=== PATIENT | male | born 1965 | race Caucasian/White ===

== ENCOUNTER 2020-03-24 11:03 | Inpatient (IN) | payer MEDICAID ==
[~2020-03-24] VITALS: Ht 170.2 cm; Wt 95.3 kg
[2020-03-24] MEDS ORDERED: ALBUTEROL 6.7GM HFA INHALER ORI ONE (11:30)
[2020-03-24] MEDS ORDERED: DEXAMETHASONE 2MG TABLET PO ONE (11:30)
[2020-03-24 11:59] LABS: BASOPHILS % 0.5 % (0.0-2.0); HEMOGLOBIN. 15.3 g/dL (14.0-18.0); LYMPHOCYTES % 23.5 % (20.0-50.0); MEAN CORPUSCULAR HEMOGLOBIN 29.5 pg (28.0-32.0); MEAN CORPUSCULAR VOLUME 86.8 fL (80.0-94.0); MEAN PLATELET VOLUME 8.4 fl (7.4-10.4); MONOCYTES % 7.8 % (2.0-8.0); NEUTROPHILS % 66.2 % (40.0-76.0); PLATELET 273 x1000/uL (130-400); RED BLOOD CELL COUNT 5.18 mill/uL (4.7-6.1); RED CELL DISTRIBUTION WIDTH 12.7 % (11.6-14.6)
[2020-03-24 12:03] LABS: CHLORIDE 98 mEq/L (98-107)
[2020-03-24] MEDS ORDERED: POTASSIUM CHLORIDE 20MEQ TABLET SR PO ONE (12:15)
[2020-03-24] MEDS ORDERED: MAGNESIUM 1 G PREMIX 100 ML IV ONE (12:15)
[2020-03-24] MEDS ORDERED: KCL 20MEQ/100ML PREMIX 100 ML IV ONE (12:15)
[2020-03-25 06:30] VITALS: BP 121/77
[2020-03-25] MEDS ORDERED: MAGNESIUM/ALUMINUM HYDROXIDE/SIMETHICONE 30ML UDC PO PRN (07:45)
[2020-03-25] MEDS ORDERED: ONDANSETRON HCL 4MG/2ML INJ IV PRN (07:45)
[2020-03-25] MEDS ORDERED: ACETAMINOPHEN 325MG TABLET PO PRN (07:45)
[2020-03-25] MEDS ORDERED: DEXTROSE 50% WATER 50ML SYRINGE IV PRN ×4 (07:45)
[2020-03-25] MEDS ORDERED: CLONIDINE 0.1MG TABLET PO PRN (07:45)
[2020-03-25] MEDS: BLOOD SUGAR DIAGNOSTIC STRIP TEST SCH ×4 (08:00→21:00)
[2020-03-25] MEDS ORDERED: INSULIN LISPRO 100 UNITS/ML SUBCUT SCH (08:10)
[2020-03-25] MEDS ORDERED: DEXAMETHASONE 4MG TABLET PO SCH (09:00)
[2020-03-25] MEDS ORDERED: ALBUTEROL 6.7GM HFA INHALER ORI PRN (09:00)
[2020-03-25] MEDS: PANTOPRAZOLE SODIUM 40 MG/VIAL IV SCH (09:36)
[2020-03-25] MEDS: AZITHROMYCIN 500 MG TABLET PO SCH (09:37)
[2020-03-25] MEDS: INSULIN LISPRO 100 UNITS/ML SUBCUT SCH ×4 (09:38→23:04)
[2020-03-25 09:49] LABS: HEMOGLOBIN 14.2 g/dL (14.0-18.0)
[2020-03-25 09:50] LABS: MEAN CORPUSCULAR VOLUME 87.7 fL (80.0-94.0); PLATELET 315 x1000/uL (130-400); RED CELL DISTRIBUTION WIDTH 12.8 % (11.6-14.6)
[2020-03-25 09:55] LABS: CHLORIDE 100 mEq/L (98-107)
[2020-03-25] MEDS: CEFTRIAXONE 1,000 MG in DEXTROSE 5% WATER 50 ML IV SCH (12:29)
[2020-03-25] MEDS: ENOXAPARIN 30MG/0.3ML SYR SUBCUT SCH ×2 (12:30→23:08)
[2020-03-25] MEDS ORDERED: BLOOD SUGAR DIAGNOSTIC STRIP TEST SCH (12:40)
[2020-03-25] MEDS ORDERED: METF-414 PO (13:57)
[2020-03-25] MEDS ORDERED: HYDR25TA PO (13:58)
[2020-03-25] MEDS ORDERED: LISI-604 PO (13:58)
[2020-03-25 14:24] VITALS: BP 158/80
[2020-03-25 16:00] VITALS: BP 112/68
[2020-03-25] MEDS: DEXAMETHASONE 6MG TABLET PO SCH (17:31)
[2020-03-25 20:00] VITALS: BP 111/76
[2020-03-25] MEDS ORDERED: INSULIN GLARGINE UD 100 UNITS/ML SYR SUBCUT SCH (22:00)
[2020-03-26] VITALS: BP 109/74
[2020-03-26 04:00] VITALS: BP 101/68
[2020-03-26] MEDS: BLOOD SUGAR DIAGNOSTIC STRIP TEST SCH ×3 (06:45→18:10)
[2020-03-26] MEDS: INSULIN LISPRO 100 UNITS/ML SUBCUT SCH ×3 (06:50→18:10)
[2020-03-26 08:00] VITALS: BP 118/81
[2020-03-26] MEDS ORDERED: LISINOPRIL 20MG TABLET PO SCH (09:00)
[2020-03-26] MEDS ORDERED: HYDROCHLOROTHIAZIDE 25MG TABLET PO SCH (09:00)
[2020-03-26 09:16] LABS: BASOPHILS % 0.3 % (0.0-2.0); HEMATOCRIT. 47.2 % (42.0-52.0); LYMPHOCYTES % 15.9 % (20.0-50.0); MEAN CORPUSCULAR HEMOGLOBIN 29.9 pg (28.0-32.0); MEAN CORPUSCULAR VOLUME 88.5 fL (80.0-94.0); MEAN PLATELET VOLUME 8.6 fl (7.4-10.4); MONOCYTES % 4.1 % (2.0-8.0); NEUTROPHILS % 79.7 % (40.0-76.0); PLATELET 369 x1000/uL (130-400); RED BLOOD CELL COUNT 5.34 mill/uL (4.7-6.1); RED CELL DISTRIBUTION WIDTH 13.1 % (11.6-14.6)
[2020-03-26] MEDS: AZITHROMYCIN 500 MG TABLET PO SCH (09:31)
[2020-03-26] MEDS: DEXAMETHASONE 6MG TABLET PO SCH (09:31)
[2020-03-26] MEDS: ENOXAPARIN 30MG/0.3ML SYR SUBCUT SCH (09:32)
[2020-03-26] MEDS: PANTOPRAZOLE SODIUM 40 MG/VIAL IV SCH (09:32)
[2020-03-26] MEDS: CEFTRIAXONE 1,000 MG in DEXTROSE 5% WATER 50 ML IV SCH (09:32)
[2020-03-26 09:34] LABS: CHLORIDE 104 mEq/L (98-107)
[2020-03-26 09:44] LABS: PHOSPHORUS 3.6 mg/dL (2.5-4.9)
[2020-03-26 13:52] LABS: BG CARBOXYHEMOGLOBIN 0.3 % (0.5-1.5); BG FRACTION INSPIRED OXYGEN 36; BG HCO3 ACT 22.5 mmol/L (22.0-26.0); BG METHEMOGLOBIN 0.1 % (0.0-1.5); BG OXYHEMOGLOBIN 95.6 % (94.0-97.0); BG PCO2 34.3 mmHg (35.0-45.0); BG PH 7.435 (7.350-7.450); BG PO2 81.2 mmHg (75.0-100.0); BG SAMPLE SITE RIGHT BRACHIAL; BG TOTAL HEMOGLOBIN 14.8 g/dL (12.0-18.0); BG VENT MODE NASAL CANNULA
[2020-03-26 14:00] VITALS: BP 111/74
[2020-03-26] MEDS ORDERED: INSULIN GLARGINE UD 100 UNITS/ML SYR SUBCUT SCH (15:30)
[2020-03-26] MEDS ORDERED: INSU100I28 SQ (17:16)
[2020-03-26] MEDS ORDERED: INSULIN LISPRO 100 UNITS/ML SUBCUT NR (17:16)
[2020-03-27] MEDS ORDERED: FAMOTIDINE 20MG/2ML VIAL IV SCH (09:00)
== END 2020-03-26 18:57 | disposition home or self-care (01) | DRG 137 ==
LOC: ER 11:21 → MICUSO 14:46 → 7WST 03-25 03:54
PROVIDERS: ADMIT Internal Medicine; ATTEND Internal Medicine
DX: U07.1 COVID-19 (principal); J96.01 Acute respiratory failure with hypoxia; I10 Essential (primary) hypertension; E87.6 Hypokalemia; R74.01 Elevation of levels of liver transaminase levels; J12.82 Pneumonia due to coronavirus disease 2019; E44.0 Moderate protein-calorie malnutrition; E66.9 Obesity, unspecified; E11.9 Type 2 diabetes mellitus without complications; Z68.32 Body mass index [BMI] 32.0-32.9, adult
CPT/HCPCS: 36415; 36600; 71045; 76700; 80048; 80053; 80076; 82375; 82728; 82805; 82962; 83036; 83615; 83735; 83880; 84100; 84145; 84484; 85025; 85027; 85379; 86140; 93005; 93970; 99291; C9113; J0696; J1650; J1815; J3475; J3480; J7040; J7060; J8540; U0003